=== PATIENT | male | born 1970 | race Caucasian/White ===

== ENCOUNTER 2019-02-25 07:58 | Emergency (ER) | payer OTHER ==
[~2019-02-25] VITALS: Ht 190.5 cm; Wt 70.0 kg
--- NOTE | 2019-02-25 08:09 | NUR ---
PT AMBULATED WITH TECH TO ROOM. STEADY GAIT.
--- NOTE | 2019-02-25 08:12 | NUR ---
PT PRESENTED TO ED D/T "HERNIA PAIN." PT STATED "BUMPED" IT A COUPLE DAYS AGO. STATES HAS HAD HERNIA FOR "10 YEARS NOW." PT DENIES N/V. DENIES FEVERS OR CHILLS.
[2019-02-25] MEDS ORDERED: ESCI10TA10 PO (08:13)
--- NOTE | 2019-02-25 09:19 | NUR ---
PT AMBULATED TO XR WITH TECH. STEADY GAIT.
[2019-02-25 09:30] VITALS: BP 125/91
[2019-02-25 09:30] LABS: BASOPHILS # (AUTO) 0.03 x10^3/uL (0-0.1); BASOPHILS % (AUTO) 0 % (0-1); EOSINOPHILS # (AUTO) 0.06 x10^3/uL (0-0.4); EOSINOPHILS % (AUTO) 1 % (1-7); LYMPHOCYTES # (AUTO) 1.28 x10^3/uL (1-3.4); LYMPHOCYTES % (AUTO) 15 % (22-44); MD NO; MEAN CORPUSCULAR HEMOGLOBIN 32.9 pg (27.5-34.5); MEAN CORPUSCULAR HGB CONC 33.7 g/dL (33.2-36.2); MEAN CORPUSCULAR VOLUME 97.5 fL (81-97); MEAN PLATELET VOLUME 8.1 fL (7.4-10.4); MONOCYTES # (AUTO) 0.48 x10^3/uL (0.2-0.8); MONOCYTES % (AUTO) 6 % (2-9); NEUTROPHILS # (AUTO) 6.61 x10^3/uL (1.8-6.8); NEUTROPHILS % (AUTO) 78 % (42-75); PLATELET COUNT 277 x10^3/uL (130-400); RED BLOOD COUNT 4.75 x10^6/uL (4.38-5.82); RED CELL DISTRIBUTION WIDTH 13.6 % (9.4-14.8)
--- NOTE | 2019-02-25 09:31 | NUR ---
PT LYING ON GURNEY. NO NEEDS AT THIS TIME. AWAITING DC PAPERWORK.
[2019-02-25 09:42] LABS: ALANINE AMINOTRANSFERASE 26 U/L (12-78); ALBUMIN 4.8 g/dL (3.4-5.0); ANION GAP 17 mmol/L (5-15); CALCIUM 9.5 mg/dL (8.5-10.1); CHLORIDE 106 mmol/L (98-107); CREATININE 0.97 mg/dL (0.7-1.3)
[2019-02-25 09:44] LABS: ALKALINE PHOSPHATASE 57 U/L (45-117); BILIRUBIN,TOTAL 0.6 mg/dL (0.2-1.0); TOTAL PROTEIN 8.5 g/dL (6.4-8.2)
--- NOTE | 2019-02-25 09:59 | NUR ---
PT BEING DISCHARGED HOME IN A STABLE CONDITION. DC INSTRUCTIONS WERE DISCUSSED WITH PT. PT VERBALIZED UNDERSTANDING. NO FUTHER QUESTION OR CONCERNS WERE EXPRESSED AT THAT TIME. PT AMBULATED TO DC DESK WITH RN. STEADY GAIT.
== END 2019-02-25 10:01 | disposition home or self-care (01) ==
LOC: ED 08:18
DX: K42.9 Umbilical hernia without obstruction or gangrene (principal); R10.9 Unspecified abdominal pain
CPT/HCPCS: 36415; 74021; 80053; 85025; 99284